=== PATIENT | male | born 1990 | race Caucasian/White ===

== ENCOUNTER 2019-09-20 06:08 | Emergency (ER) | payer SELFPAY ==
[~2019-09-20] VITALS: Ht 185.4 cm; Wt 81.8 kg
[~2019-09-20 06:08] MED LIST: BACTRIM DS TABL1 TAB PO; PERCOCET 5-3251 TAB PO
[2019-09-20 06:15] VITALS: Ht 185.4 cm; Wt 81.8 kg
[2019-09-20 06:50] VITALS: BP 131/89
== END 2019-09-20 06:50 | disposition home or self-care (01) ==
LOC: D.ER 06:08
DX: F19.10 Other psychoactive substance abuse, uncomplicated (principal); F10.10 Alcohol abuse, uncomplicated; W19.XXXA Unspecified fall, initial encounter

== ENCOUNTER 2020-01-01 11:45 | Emergency (ER) | payer MEDICAID ==
[~2020-01-01] VITALS: Ht 185.4 cm; Wt 77.7 kg
[2020-01-01 11:51] VITALS: Ht 185.4 cm; Wt 77.7 kg
[2020-01-01 12:30] LABS: BASOPHILS 0.3 % (0-2); EOSINOPHILS 0.8 % (0-7); HEMATOCRIT 43.9 % (42.0-54.0); HEMOGLOBIN 14.8 g/dL (13.5-17.5); IMMATURE GRANULOCYTES 0.2 % (0-5); LYMPHOCYTES 16.5 % (15-50); MCH 31.9 pg (26.0-34.0); MCHC 33.7 g/dL (31.0-37.0); MCV 94.6 fL (80.0-100.0); MEAN PLATELET VOLUME 9.1 fL (7.4-10.4); MONOCYTES 6.5 % (2-11); NEUTROPHILS 75.7 % (40-80); PLATELET COUNT 217 10x3/uL (130-400); RBC 4.64 10x6/uL (4.20-6.10); RDW 12.4 % (11.5-14.5); WBC 10.6 10x3/uL (4.8-10.8)
[2020-01-01 12:56] LABS: CALC OSMOLALITY 280 mosm/kg (275-300); CALCIUM 9.2 mg/dL (8.5-10.1); CARBON DIOXIDE 35.5 mmol/L (21.0-32.0); CHLORIDE - SERUM 102 mmol/L (98-107); GLUCOSE 106 mg/dL (74-106); POTASSIUM - SERUM 4.6 mmol/L (3.5-5.1); SODIUM 140 mmol/L (136-145); UREA NITROGEN 17 mg/dL (7-18); eGFR NON AFRICAN AMERICAN > 90 mL/min (90-120)
[2020-01-01 13:01] LABS: ALBUMIN 3.7 g/dL (3.4-5.0); ALKALINE PHOSPHATASE 117 U/L (30-120); ALT (SGPT) 50 U/L (10-68); BILIRUBIN - TOTAL 1.14 mg/dL (0.2-1.3); PROTEIN - SERUM 7.8 g/dL (6.4-8.2)
[2020-01-01] MEDS ORDERED: IBUPROFEN800 MG PO (13:30)
[2020-01-01] MEDS ORDERED: CIPRO500 MG PO (13:30)
[2020-01-01 14:03] VITALS: BP 156/94
== END 2020-01-01 14:04 | disposition home or self-care (01) ==
LOC: D.ER 11:45
PROVIDERS: Family Medicine
DX: S91.332A Puncture wound without foreign body, left foot, initial encounter (principal); L03.116 Cellulitis of left lower limb; S99.922A Unspecified injury of left foot, initial encounter; W45.0XXA Nail entering through skin, initial encounter; Y93.9 Activity, unspecified; Y92.9 Unspecified place or not applicable